=== PATIENT | male | born 1955 ===

== ENCOUNTER 2016-10-23 18:33 | Emergency (ER) | payer MEDICAID, OTHER ==
[2016-10-23 18:55] VITALS: PULSE 87
--- NOTE | 2016-10-23 19:19 | C.PDOC ---
History Of Present Illness Patient is a 61 year old male who presents to the ER with a complaint of a mild to moderate headache for the past 2 days. Denies nasal congestion/discharge. Patient states he took 2 aspirin earlier today with no relief. Patient claims good compliance with following with medications. Denies nausea, vomiting, or fever. Time Seen by Provider: 10/23/16 19:12 Chief Complaint (Nursing): Headache History Per: Patient History/Exam Limitations: no limitations Onset/Duration Of Symptoms: Days (2) Current Symptoms Are (Timing): Still Present Severity: Mild (to moderate) Preceeding Symptoms: None Associated Symptoms: denies: Nausea, Vomiting Past Medical History Reviewed: Historical Data, Nursing Documentation, Vital Signs Vital Signs: Last Vital Signs Temp 98.3 F 10/23/16 21:32 Pulse 87 10/23/16 21:32 Resp 16 10/23/16 21:32 BP 144/85 10/23/16 21:32 Pulse Ox 95 10/23/16 21:32 - Medical History PMH: Diabetes, HTN Family History: States: Unknown Family Hx - Social History Hx Alcohol Use: No Hx Substance Use: No - Immunization History Hx Tetanus Toxoid Vaccination: Yes Hx Influenza Vaccination: Yes Hx Pneumococcal Vaccination: Yes Review Of Systems Constitutional: Negative for: Fever Cardiovascular: Negative for: Chest Pain Respiratory: Negative for: Shortness of Breath Gastrointestinal: Negative for: Nausea, Vomiting Neurological: Positive for: Headache. Negative for: Weakness Physical Exam - Physical Exam Appears: Well, Non-toxic Skin: Normal Color, Warm, Dry Head: Atraumatic, Normacephalic Oral Mucosa: Moist Chest: Symmetrical Cardiovascular: Rhythm Regular Respiratory: Normal Breath Sounds, No Rales, No Rhonchi, No Wheezing Gastrointestinal/Abdominal: Soft, No Tenderness Neurological/Psych: Oriented x3, Normal Speech, Normal Cognition, Normal Motor, Normal Sensation, Normal Reflexes Gait: Steady ED Course And Treatment - Laboratory Results Result Diagrams: 10/23/16 19:59 10/23/16 19:59 Lab Interpretation: Normal (trop neg, ++ glu) O2 Sat by Pulse Oximetry: 96 (Room air) Pulse Ox Interpretation: Normal - Radiology CXR: Interpreted by Nc CXR Interpretation: Yes: No Acute Disease - CT Scan/US CT of head w/o contrast Other Rad Studies (CT/US): Read By Radiologist, Radiology Report Reviewed CT/US Interpretation: IMPRESSION: Right maxillary sinus aerosolized secretions may reflect acute sinusitis in the appropriate clinical. scenario. Clinical correlation recommended. Progress Note: CT of head w/o contrast, EKG, blood work, chest x-ray, and urinalysis ordered. Toradol IVP, trandate PO, and tylenol PO administered. Reevaluation Time: 21:06 Reassessment Condition: Improved Medical Decision Making Medical Decision Making: mild sinusitus probably causing R>L headache- noted on head CT poorly controlled DM Disposition Doctor Will See Patient In The: Office Counseled Patient/Family Regarding: Studies Performed, Diagnosis - Disposition Referrals: Hina Yanes MD [Medical Doctor] - Disposition: HOME/ ROUTINE Disposition Time: 21:07 Condition: GOOD Additional Instructions: Ibuprofeno 400-600 mg cada 6 horas steff necessario para dolor de bjorn Isela "tylenol Sinus" medicamentos para quitar congestion nasal Sigue con Jessy Yanes steff necessario. Instructions: Sinusitis (ED), Acute Headache (ED) Print Language: ROMANIAN - Clinical Impression Clinical Impression: Headache, Acute sinusitis - Scribe Statement The provider has reviewed the documentation as recorded by the Scriberiberto Puente All medical record entries made by the Scribe were at my direction and personally dictated by me. I have reviewed the chart and agree that the record accurately reflects my personal performance of the history, physical exam, medical decision making, and the department course for this patient. I have also personally directed, reviewed, and agree with the discharge instructions and disposition.
[2016-10-23 20:02] LABS: BASO # 0.1 K/uL (0.0-0.2); BASO % 0.7 % (0.0-2.0); EOS % 0.6 % (0.0-4.0); HEMATOCRIT 38.9 % (35.0-51.0); LYMPH # 2.3 K/uL (1.0-4.3); LYMPH % 32.6 % (20.0-40.0); MEAN CELL VOLUME 95.3 fL (80.0-94.0); MEAN CORPUSCULAR HEMOGLOBIN 32.4 pg (27.0-31.0); MEAN PLATELET VOLUME 8.5 fL (7.2-11.7); MONO # 0.7 K/uL (0.0-0.8); MONO % 9.7 % (0.0-10.0); RED CELL DISTRIBUTION WIDTH 13.6 % (11.5-14.5); WHITE BLOOD COUNT 7.1 K/uL (4.8-10.8)
[2016-10-23 20:10] LABS: INR 0.9
[2016-10-23 20:11] LABS: CHLORIDE 94 mmol/L (98-107); POTASSIUM 4.3 mmol/L (3.6-5.2); SODIUM 132 mmol/L (132-148)
[2016-10-23 20:13] LABS: ALB/GLOB RATIO 1.3 (1.0-2.1); AST/SGOT 24 U/L (17-59); BILIRUBIN,TOTAL 0.3 mg/dL (0.2-1.3); CARBON DIOXIDE 27 mmol/L (22-30); CHOLESTEROL 201 mg/dL (0-199); GFR AFRICAN-AMERICAN > 60; TOTAL PROTEIN 6.5 g/dL (6.3-8.3)
[2016-10-23 20:14] LABS: ALKALINE PHOSPHATASE 76 U/L (38-126); ALT/SGPT 19 U/L (21-72); BLOOD UREA NITROGEN 8 mg/dL (9-20); CALCIUM 8.2 mg/dl (8.6-10.4); GLUCOSE,RANDOM 379 mg/dL (75-110)
[2016-10-23 20:16] VITALS: RESP 16; TEMP 98.3
[2016-10-23 21:33] VITALS: BP 144/85
[2016-10-24 00:38] VITALS: O2SAT 96
--- NOTE | 2016-10-24 08:36 | CT ---
PROCEDURE: CT HEAD WITHOUT CONTRAST. HISTORY: Headache, HTN COMPARISON: None available. TECHNIQUE: Axial computed tomography images were obtained through the head/brain without intravenous contrast. Radiation dose: Total exam DLP = 877.59 mGy-cm. This CT exam was performed using one or more of the following dose reduction techniques: Automated exposure control, adjustment of the mA and/or kV according to patient size, and/or use of iterative reconstruction technique. FINDINGS: HEMORRHAGE: No intracranial hemorrhage. BRAIN: There is no mass, mass effect, territorial infarction or extra-axial fluid collection. VENTRICLES: There is mild age-related global parenchymal volume loss and proportionate enlargement of the ventricles and cortical sulci. CALVARIUM: The skull base and calvarium are normal. PARANASAL SINUSES: There is moderate mucosal thickening in the maxillary sinus and mild mucosal thickening in the ethmoid air cells. Also noted are aerosolized secretions in the right maxillary sinus. MASTOID AIR CELLS: Predominantly clear. OTHER FINDINGS: None. IMPRESSION: No acute intracranial abnormality. Mild age-related global parenchymal volume loss. Moderate mucosal thickening and aerosolized secretions in the right maxillary sinus could represent acute sinusitis in the appropriate clinical setting. A preliminary report was provided by [employer].
--- NOTE | 2016-10-24 08:58 | RAD ---
HISTORY: Headache COMPARISON: No prior. FINDINGS: LUNGS: Mild venous congestion. PLEURA: No significant pleural effusion identified, no pneumothorax apparent. CARDIOVASCULAR: Normal. OSSEOUS STRUCTURES: Degenerative changes in the spine with paravertebral osteophytes. VISUALIZED UPPER ABDOMEN: Normal. OTHER FINDINGS: None. IMPRESSION: Mild venous congestion.
== END 2016-10-23 21:37 | disposition home or self-care (01) ==
LOC: C.ER 18:33
DX: J01.00 Acute maxillary sinusitis, unspecified (principal); R51 Headache
CPT/HCPCS: 70450; 71010; 80053; 80061; 83036; 84484; 85025; 85610; 85730; 96374; 99284; J1885

== ENCOUNTER 2018-02-17 08:02 | Day surgery (SDC) | payer OTHER ==
--- NOTE | 2018-02-17 10:11 | CP.SDSHP ---
Same Day Surgery H & P - History Proposed Procedure: colonoscopy and egd Pre-Op Diagnosis: abd pain and colon ca screening - Allergies Allergies: Allergies IV DYE Allergy (Uncoded 02/17/18 08:44) RASH seafood Allergy (Uncoded 02/17/18 08:44) RASH - Physical Exam Vital Signs: Vital Signs 02/17/18 02/17/18 08:57 09:09 Temperature 97.8 F Pulse Rate 101 H 101 H Respiratory 20 Rate Blood Pressure 153/88 H O2 Sat by Pulse 97 Oximetry Mental Status: Alert & Oriented x3 Neuro: WNL Heart: WNL Lungs: WNL GI: WNL - {Optional Preform as Required} Abdomen: WNL - Impression Impression: proceed with egd and colonoscopy Pt. Evaluated Today:Candidate for Anesthesia & Procedure: Yes Short Stay Discharge - Short Stay Discharge Admitting Diagnosis/Reason for Visit: ENCOUNTER FOR SCREENING COLONOSCOPY, GERD Disposition: HOME/ ROUTINE
[2018-02-17] MEDS ORDERED: Midazolam 2 MG/2 ML VIAL ONE (10:21)
[2018-02-17] MEDS ORDERED: Propofol 10 mg/ml Inj (20 ML) ONE (10:21)
[2018-02-17 11:09] VITALS: TEMP 97.9
[2018-02-17 11:43] VITALS: BP 139/84; PULSE 89; RESP 16; O2SAT 99
== END 2018-02-17 11:41 | disposition home or self-care (01) ==
LOC: C.ENDO 08:02
PROVIDERS: ATTEND Internal Medicine Gastroenterology
DX: Z12.11 Encounter for screening for malignant neoplasm of colon (principal); K21.9 Gastro-esophageal reflux disease without esophagitis; K63.5 Polyp of colon; K64.8 Other hemorrhoids; K29.30 Chronic superficial gastritis without bleeding; B96.81 Helicobacter pylori [H. pylori] as the cause of diseases classified elsewhere
CPT/HCPCS: 43239; 45380; 82948; 88305; J2001; J2250; J2704

== ENCOUNTER 2018-02-18 10:13 | Emergency (ER) | payer OTHER ==
[2018-02-18 10:17] VITALS: BMI 25.8
[2018-02-18 10:19] VITALS: BP 169/95; PULSE 86; RESP 18; TEMP 98.3; O2SAT 98
--- NOTE | 2018-02-18 10:53 | C.PDOC ---
History Of Present Illness 62 year old male with past medical history of diabetes type II, HTN and HLD presents to the ER s/p fall yesterday at 7pm. Patient states he was walking down the steps to throw away a water bottle when he missed the last 2 steps and fell. He states he was able to get himself up and he sat down for a few minutes. Patient denies hitting his head or loss of consciousness. He states he placed ice on it last night but did not take anything for pain. His current pain is a 10/10 and it is located in the front of his right thigh. He denies radiation of the pain, numbness or tingling. (Nickie Neville) History Per: Patient History/Exam Limitations: no limitations Time Seen by Provider: 02/18/18 10:20 Chief Complaint (Nursing): Lower Extremity Problem/Injury Past Medical History - Medical History PMH: Diabetes, Gastritis, HTN, Hypercholesterolemia Denies: Chronic Kidney Disease Family History: States: Unknown Family Hx - Social History Hx Alcohol Use: No Hx Substance Use: No - Immunization History Hx Tetanus Toxoid Vaccination: Yes Hx Influenza Vaccination: Yes Hx Pneumococcal Vaccination: Yes Vital Signs: Last Vital Signs Temp 98.3 F 02/18/18 10:17 Pulse 86 02/18/18 10:17 Resp 18 02/18/18 10:17 BP 169/95 H 02/18/18 10:17 Pulse Ox 98 02/18/18 11:36 Review Of Systems Musculoskeletal: Positive for: Leg Pain (right thigh pain ) Neurological: Positive for: Weakness. Negative for: Numbness Physical Exam - Physical Exam Appears: Non-toxic, In Acute Distress Skin: Normal Color, Warm, No Rash, No Ecchymosis Head: Atraumatic, Normacephalic Eye(s): bilateral: Normal Inspection, PERRL, EOMI Cardiovascular: Rhythm Regular Respiratory: Normal Breath Sounds Extremity: No Normal ROM (decreased right lower extremity ROM), Tenderness ( right thigh tenderness), No Pedal Edema, Swelling (left anterior thigh ) Neurological/Psych: Oriented x3 ED Course And Treatment O2 Sat by Pulse Oximetry: 98 Medical Decision Making Medical Decision Making: Right Femur Xray: Negative for fracture Confirmed that patient was not on drug registry and discussed the side affects of opiod use. Patient was counselled to follow up in the [facility]. (Nickie Neville) Seen and examined with resident. 62 y/o M p/w mechanical fall with pain of anterior R thigh, no hip or knee tenderness or limited ROM. (London Luu) Disposition Discussed With : [facility] Doctor Will See Patient In The: ED - Disposition Disposition Time: 11:36 - Disposition Referrals: Malika Granados MD [Staff Provider] - [facility] [Outside] Disposition: HOME/ ROUTINE Condition: IMPROVED Prescriptions: oxyCODONE/Acetaminophen [Percocet 5/325 mg Tab] 1 ea PO Q6 PRN #5 tab PRN Reason: Pain, Severe (8-10) oxyCODONE/Acetaminophen [Percocet 5/325 mg Tab] 1 tab PO Q6 #10 tab Instructions: Muscle and Bone Pain (DC) Forms: [facility] (Gibraltarian), Gen Discharge Inst Barbadian, General Discharge Instructions Print Language: HAITIAN - Clinical Impression Clinical Impression: Fall (on) (from) other stairs and steps, initial encounter, Pain in right femur - PA / FINISH SAW OPERATOR / Resident Statement MD/ has reviewed & agrees with the documentation as recorded. MD/DO has examined the patient and agrees with the treatment plan.
[2018-02-18] MEDS ORDERED: Oxycodone/Acetaminophen 5/325 mg Tab PO ONE (11:33)
[2018-02-18] MEDS ORDERED: Oxycodone/Acetaminophen 5/325 mg Tab ONE (11:42)
--- NOTE | 2018-02-18 12:18 | RAD ---
Date of service: 02/18/2018 PROCEDURE: HISTORY: s/p fall COMPARISON: None TECHNIQUE: Four images FINDINGS: No complete fracture noted. The oblique lucency over the medial proximal femoral shaft is compatible with a nutrient vessel. There is some cortical smooth periosteal type reaction here also noted. No comparison studies are available. The surrounding fat planes appear intact. IMPRESSION: No suspect fracture appreciated. The lucency noted above probably relates to a nutrient foraminal vessel channel
== END 2018-02-18 11:56 | disposition home or self-care (01) ==
LOC: C.ER 10:13
DX: M79.651 Pain in right thigh (principal); W10.9XXA Fall (on) (from) unspecified stairs and steps, initial encounter; Y92.89 Other specified places as the place of occurrence of the external cause
CPT/HCPCS: 73552; 97116; 97161; 99284; G8978; G8979; G8980

== ENCOUNTER 2018-08-03 13:51 | Emergency (ER) | payer OTHER | END 2018-08-03 15:33 | disposition home or self-care (01) | LOC: C.ER 13:51 ==